=== PATIENT | female | born 1945 | race African-American/Black ===

== ENCOUNTER 2018-02-07 12:36 | Inpatient (IN) | payer MEDICARE, MEDICAID ==
[~2018-02-07] VITALS: Ht 160 cm; Wt 91.8 kg
[2018-02-07 14:58] LABS: BASOPHILS % 0.1 % (0.0-2.0); HEMATOCRIT. 34.3 % (36.0-48.0); HEMOGLOBIN. 11.1 g/dL (12.0-16.0); LYMPHOCYTES % 9.6 % (20.0-50.0); MEAN CORPUSCULAR HEMOGLOBIN 31.3 pg (28.0-32.0); MEAN CORPUSCULAR VOLUME 96.8 fL (81.0-99.0); MEAN PLATELET VOLUME 9.1 fl (7.4-10.4); MONOCYTES % 11.1 % (2.0-8.0); NEUTROPHILS % 79.2 % (40.0-76.0); PLATELET 225 x1000/uL (130-400); RED BLOOD CELL COUNT 3.54 mill/uL (4.2-5.4); RED CELL DISTRIBUTION WIDTH 13.7 % (11.6-14.6)
[2018-02-07 15:03] LABS: CHLORIDE 102 mEq/L (98-107)
[2018-02-07 15:10] LABS: INR 1.1; PROTHROMBIN TIME 10.9 sec (9.1-11.1)
[2018-02-07 15:23] LABS: CREATINE KINASE 215 IU/L (26-192)
[2018-02-07] MEDS ORDERED: HYDRALAZINE 20MG/ML VIAL IV ONE (16:30)
[2018-02-07 23:00] VITALS: BP 131/61
[2018-02-07] MEDS ORDERED: ATOR10TA69 PO (23:28)
[2018-02-07] MEDS ORDERED: ASPI-1159 PO (23:28)
[2018-02-07] MEDS ORDERED: FURO-151 PO (23:28)
[2018-02-07] MEDS ORDERED: METF-517 PO (23:28)
[2018-02-07] MEDS ORDERED: GLYB5TAB7 PO (23:28)
[2018-02-07] MEDS ORDERED: INFLUENZA VIRUS VACCINE(AFLURIA) 0.5ML SYR IM ONE (23:45)
[2018-02-08] VITALS: BP 103/37
[2018-02-08] MEDS ORDERED: DEXTROSE 50% WATER 50ML SYRINGE IV PRN (00:30)
[2018-02-08] MEDS ORDERED: ONDANSETRON HCL 4MG/2ML INJ IV PRN (00:30)
[2018-02-08] MEDS ORDERED: CLONIDINE 0.1MG TABLET PO PRN (00:30)
[2018-02-08] MEDS ORDERED: MAGNESIUM/ALUMINUM HYDROXIDE/SIMETHICONE 30ML UDC PO PRN (00:30)
[2018-02-08] MEDS: ACETAMINOPHEN 325MG TABLET PO PRN (00:36)
[2018-02-08] MEDS ORDERED: SODIUM BICARBONATE 100 MEQ in DEXTROSE 5% WATER 1,000 ML IV SCH (02:00)
[2018-02-08 04:00] VITALS: BP 112/33
[2018-02-08] MEDS: BLOOD SUGAR DIAGNOSTIC STRIP TEST SCH ×4 (06:47→21:05)
[2018-02-08 08:00] VITALS: BP 115/60
[2018-02-08] MEDS: INSULIN LISPRO 100 UNITS/ML SUBCUT SCH ×4 (09:38→21:05)
[2018-02-08] MEDS ORDERED: SODIUM BICARBONATE 4% (2.4MEQ) 5ML VIAL IV ONE (10:39)
[2018-02-08] MEDS ORDERED: LIDOCAINE HCL 1% 20ML VIAL (Pyxis) INJ ONE (10:40)
[2018-02-08] MEDS ORDERED: SODIUM BICARBONATE 150 MEQ in DEXTROSE 5% WATER 1,000 ML IV SCH (11:30)
[2018-02-08 12:00] VITALS: BP 116/61
[2018-02-08] MEDS ORDERED: MAGNESIUM 2 G PREMIX 50 ML IV SCH (12:00)
[2018-02-08] MEDS: CITRIC ACID/SODIUM CITRATE SOLN 30ML UDC PO SCH ×3 (13:00→18:27)
[2018-02-08 16:00] VITALS: BP 118/64
[2018-02-08 17:10] LABS: BG BASE EXCESS -9.9 mmol/L (-2.0-2.0); BG CARBOXYHEMOGLOBIN 0.3 % (0.5-1.5); BG DEOXYHEMOGLOBIN 2.6 % (0.0-5.0); BG FRACTION INSPIRED OXYGEN 21; BG HCO3 ACT 13.6 mmol/L (22.0-26.0); BG METHEMOGLOBIN 0.3 % (0.0-1.5); BG OXYGEN SATURATION 97.4 % (92.0-98.5); BG OXYHEMOGLOBIN 96.8 % (94.0-97.0); BG PCO2 23.3 mmHg (35.0-45.0); BG PH 7.384 (7.350-7.450); BG PO2 107.9 mmHg (75.0-100.0); BG SAMPLE SITE RIGHT RADIAL; BG TOTAL HEMOGLOBIN 10.3 g/dL (12.0-18.0); BG VENT MODE ROOM AIR
[2018-02-08 20:26] VITALS: BP 83/37
[2018-02-08] MEDS: FAMOTIDINE 20MG TABLET PO SCH (21:04)
[2018-02-08] MEDS: DEXT 5%/0.45% NACL 1000ML 1,000 ML IV SCH (21:55)
[2018-02-09 00:26] VITALS: BP 113/54
[2018-02-09 04:00] VITALS: BP 114/38
[2018-02-09 07:03] LABS: HEPATITIS B SURFACE AB < 3.1 mIU/mL
[2018-02-09 07:14] LABS: CLARITY URINE CLOUDY (CLEAR); COLOR URINE OTHER (YELLOW); KETONES URINE NEGATIVE (NEGATIVE); LEUKOCYTE ESTERASE URINE NEGATIVE (NEGATIVE); NITRITE URINE NEGATIVE (NEGATIVE); OCCULT BLOOD URINE NEGATIVE (NEGATIVE); PROTEIN URINE TRACE (NEGATIVE); SPECIFIC GRAVITY URINE 1.014 (1.005-1.030); UROBILINOGEN URINE 0.2 E.U./dL (0.2-1.0)
[2018-02-09 07:14] LABS: BASOPHILS % 0.3 % (0.0-2.0); EOSINOPHILS % 0.4 % (0.0-5.0); HEMATOCRIT. 26.1 % (36.0-48.0); HEMOGLOBIN. 9.1 g/dL (12.0-16.0); HEPATITIS B SURFACE ANTIGEN NEGATIVE; LYMPHOCYTES % 23.1 % (20.0-50.0); MEAN CORPUSCULAR HEMOGLOBIN 32.9 pg (28.0-32.0); MEAN CORPUSCULAR VOLUME 94.6 fL (81.0-99.0); MEAN PLATELET VOLUME 9.5 fl (7.4-10.4); MONOCYTES % 13.8 % (2.0-8.0); NEUTROPHILS % 62.4 % (40.0-76.0); PLATELET 166 x1000/uL (130-400); RED BLOOD CELL COUNT 2.76 mill/uL (4.2-5.4); RED CELL DISTRIBUTION WIDTH 13.4 % (11.6-14.6)
[2018-02-09] MEDS: BLOOD SUGAR DIAGNOSTIC STRIP TEST SCH ×4 (07:32→21:00)
[2018-02-09 08:00] VITALS: BP 119/56
[2018-02-09] MEDS: INSULIN LISPRO 100 UNITS/ML SUBCUT SCH ×4 (08:54→21:00)
[2018-02-09] MEDS: DEXT 5%/0.45% NACL 1000ML 1,000 ML IV SCH (08:55)
[2018-02-09] MEDS: CITRIC ACID/SODIUM CITRATE SOLN 30ML UDC PO SCH ×2 (08:55→12:35)
[2018-02-09 10:03] LABS: PHOSPHORUS 3.4 mg/dL (2.5-4.9)
[2018-02-09 12:00] VITALS: BP 101/56
[2018-02-09] MEDS: SODIUM CHLORIDE 0.9% 1,000 ML IV SCH (14:08)
[2018-02-09 16:00] VITALS: BP 93/42
[2018-02-09 20:27] VITALS: BP 116/54
[2018-02-09] MEDS ORDERED: EPOETIN ALFA 10000UNITS/ML VIAL SUBCUT SCH (21:00)
[2018-02-09] MEDS: FAMOTIDINE 20MG TABLET PO SCH (22:11)
[2018-02-09] MEDS: ACETAMINOPHEN 325MG TABLET PO PRN (22:12)
[2018-02-10 00:40] VITALS: BP 106/50
[2018-02-10 04:00] VITALS: BP 99/46
[2018-02-10] MEDS: SODIUM CHLORIDE 0.9% 1,000 ML IV SCH (04:40)
[2018-02-10 07:59] LABS: BASOPHILS % 0.4 % (0.0-2.0); EOSINOPHILS % 0.8 % (0.0-5.0); HEMATOCRIT. 25.9 % (36.0-48.0); HEMOGLOBIN. 8.8 g/dL (12.0-16.0); LYMPHOCYTES % 23.5 % (20.0-50.0); MEAN CORPUSCULAR HEMOGLOBIN 32.4 pg (28.0-32.0); MEAN PLATELET VOLUME 9.5 fl (7.4-10.4); MONOCYTES % 11.5 % (2.0-8.0); NEUTROPHILS % 63.8 % (40.0-76.0); PLATELET 152 x1000/uL (130-400); RED BLOOD CELL COUNT 2.73 mill/uL (4.2-5.4); RED CELL DISTRIBUTION WIDTH 13.5 % (11.6-14.6)
[2018-02-10 08:00] VITALS: BP 119/55
[2018-02-10] MEDS: BLOOD SUGAR DIAGNOSTIC STRIP TEST SCH ×4 (08:05→21:52)
[2018-02-10] MEDS: INSULIN LISPRO 100 UNITS/ML SUBCUT SCH ×4 (08:19→21:07)
[2018-02-10 08:46] LABS: PHOSPHORUS 2.3 mg/dL (2.5-4.9)
[2018-02-10 12:00] VITALS: BP 140/70
[2018-02-10 16:00] VITALS: BP 134/54
[2018-02-10 20:00] VITALS: BP 121/58
[2018-02-10] MEDS: FAMOTIDINE 20MG TABLET PO SCH (21:03)
[2018-02-11] VITALS: BP 118/52
[2018-02-11 04:00] VITALS: BP 122/59
[2018-02-11 07:00] LABS: BASOPHILS % 0.6 % (0.0-2.0); EOSINOPHILS % 1.2 % (0.0-5.0); HEMATOCRIT. 24.1 % (36.0-48.0); HEMOGLOBIN. 8.2 g/dL (12.0-16.0); LYMPHOCYTES % 25.1 % (20.0-50.0); MEAN CORPUSCULAR HEMOGLOBIN 32.5 pg (28.0-32.0); MEAN CORPUSCULAR VOLUME 95.2 fL (81.0-99.0); MEAN PLATELET VOLUME 9.2 fl (7.4-10.4); MONOCYTES % 11.9 % (2.0-8.0); NEUTROPHILS % 61.2 % (40.0-76.0); PLATELET 141 x1000/uL (130-400); RED BLOOD CELL COUNT 2.53 mill/uL (4.2-5.4); RED CELL DISTRIBUTION WIDTH 13.2 % (11.6-14.6)
[2018-02-11] MEDS: BLOOD SUGAR DIAGNOSTIC STRIP TEST SCH ×4 (07:20→21:32)
[2018-02-11 07:26] LABS: PHOSPHORUS 2.3 mg/dL (2.5-4.9)
[2018-02-11 08:00] VITALS: BP 141/77
[2018-02-11] MEDS: INSULIN LISPRO 100 UNITS/ML SUBCUT SCH ×4 (08:29→21:48)
[2018-02-11] MEDS ORDERED: MAGNESIUM 2 G PREMIX 50 ML IV NR (13:30)
[2018-02-11] MEDS ORDERED: POTASSIUM PHOS,M-BASIC-D-BASIC 15 MMOL in DEXT 5% WATER 245 ML IV NR (14:00)
[2018-02-11 20:02] VITALS: BP 135/62
[2018-02-11] MEDS ORDERED: EPOETIN ALFA 10000UNITS/ML VIAL SUBCUT SCH (21:00)
[2018-02-11] MEDS: FAMOTIDINE 20MG TABLET PO SCH (21:38)
[2018-02-12] VITALS: BP 132/60
[2018-02-12 04:00] VITALS: BP 130/77
[2018-02-12] MEDS: BLOOD SUGAR DIAGNOSTIC STRIP TEST SCH ×4 (06:53→21:00)
[2018-02-12 07:11] LABS: BASOPHILS % 0.5 % (0.0-2.0); EOSINOPHILS % 0.8 % (0.0-5.0); HEMATOCRIT. 23.9 % (36.0-48.0); HEMOGLOBIN. 8.2 g/dL (12.0-16.0); LYMPHOCYTES % 23.1 % (20.0-50.0); MEAN CORPUSCULAR HEMOGLOBIN 32.5 pg (28.0-32.0); MEAN CORPUSCULAR VOLUME 95.1 fL (81.0-99.0); MEAN PLATELET VOLUME 9.2 fl (7.4-10.4); NEUTROPHILS % 63.6 % (40.0-76.0); PLATELET 143 x1000/uL (130-400); RED BLOOD CELL COUNT 2.51 mill/uL (4.2-5.4); RED CELL DISTRIBUTION WIDTH 13.6 % (11.6-14.6)
[2018-02-12 07:52] LABS: PHOSPHORUS 2.4 mg/dL (2.5-4.9)
[2018-02-12 08:00] VITALS: BP 136/60
[2018-02-12] MEDS: INSULIN LISPRO 100 UNITS/ML SUBCUT SCH ×4 (08:07→21:51)
[2018-02-12] MEDS ORDERED: POTASSIUM CHLORIDE 20MEQ TABLET SR PO NR (10:30)
[2018-02-12 12:00] VITALS: BP 145/53
[2018-02-12 16:00] VITALS: BP 148/76
[2018-02-12] MEDS: GLIPIZIDE 5MG XL TABLET PO SCH (17:51)
[2018-02-12 19:58] VITALS: BP 121/82
[2018-02-12] MEDS: ATORVASTATIN CALCIUM 40MG TABLET PO SCH (21:48)
[2018-02-12] MEDS: METOPROLOL TARTRATE 25MG TABLET PO SCH (21:49)
[2018-02-12] MEDS: FAMOTIDINE 20MG TABLET PO SCH (21:49)
[2018-02-13] VITALS (15 sets, daily range): BP systolic 99–156; BP diastolic 42–85
[2018-02-13] MEDS: INSULIN LISPRO 100 UNITS/ML SUBCUT SCH ×4 (07:50→20:32)
[2018-02-13 08:02] LABS: PHOSPHORUS 2.7 mg/dL (2.5-4.9)
[2018-02-13 08:09] LABS: BASOPHILS % 0.4 % (0.0-2.0); EOSINOPHILS % 0.5 % (0.0-5.0); HEMATOCRIT. 25.1 % (36.0-48.0); HEMOGLOBIN. 8.5 g/dL (12.0-16.0); MEAN CORPUSCULAR HEMOGLOBIN 32.3 pg (28.0-32.0); MEAN CORPUSCULAR VOLUME 95.6 fL (81.0-99.0); MEAN PLATELET VOLUME 9.1 fl (7.4-10.4); MONOCYTES % 11.1 % (2.0-8.0); PLATELET 159 x1000/uL (130-400); RED BLOOD CELL COUNT 2.63 mill/uL (4.2-5.4); RED CELL DISTRIBUTION WIDTH 13.6 % (11.6-14.6)
[2018-02-13] MEDS ORDERED: LIDOCAINE HCL 1% 20ML VIAL (Pyxis) INJ ONE (08:58)
[2018-02-13] MEDS ORDERED: LIDOCAINE HCL/EPINEPHRINE 1%-EPI 1:100,000 20 ML VIAL ONE (08:59)
[2018-02-13] MEDS ORDERED: CEFAZOLIN 1000MG PREMIX 50 ML IV ONE ×2 (09:50→09:52)
[2018-02-13] MEDS ORDERED: FENTANYL CITRATE/PF 50MCG/ML 2ML VIAL ONE (09:52)
[2018-02-13] MEDS ORDERED: FENTANYL CITRATE/PF 50MCG/ML 2ML VIAL IV ONE (10:00)
[2018-02-13] MEDS: METOPROLOL TARTRATE 25MG TABLET PO SCH ×2 (10:55→20:29)
[2018-02-13] MEDS: GLIPIZIDE 5MG XL TABLET PO SCH ×2 (10:55→16:58)
[2018-02-13] MEDS: BLOOD SUGAR DIAGNOSTIC STRIP TEST SCH ×3 (12:34→20:29)
[2018-02-13] MEDS: ACETAMINOPHEN 325MG TABLET PO PRN ×2 (16:58→23:55)
[2018-02-13] MEDS: FAMOTIDINE 20MG TABLET PO SCH (20:29)
[2018-02-13] MEDS: ATORVASTATIN CALCIUM 40MG TABLET PO SCH (20:29)
[2018-02-14] VITALS: BP_SYST 133; BP_SYST 141; BP_DIAS 50; BP_DIAS 68
[2018-02-14 04:00] VITALS: BP 130/77
[2018-02-14] MEDS: BLOOD SUGAR DIAGNOSTIC STRIP TEST SCH (06:55)
[2018-02-14] MEDS ORDERED: METO25TA6 PO (07:26)
[2018-02-14] MEDS ORDERED: EPOE10005 SUBCUT (07:26)
[2018-02-14] MEDS ORDERED: GLIPIZIDE 5MG XL TABLET PO SCH (07:50)
[2018-02-14 08:00] VITALS: BP 153/61
[2018-02-14] MEDS: ACETAMINOPHEN 325MG TABLET PO PRN (08:23)
[2018-02-14] MEDS: METOPROLOL TARTRATE 25MG TABLET PO SCH (08:47)
[2018-02-14] MEDS: INSULIN LISPRO 100 UNITS/ML SUBCUT SCH (08:49)
[2018-02-14 10:32] VITALS: BP 128/75
== END 2018-02-14 11:05 | disposition home health service (06) | DRG 673 ==
LOC: ER 12:36 → 6WST 16:58 → EDBEDREQ 17:00 → EDBEDREQTM 17:00 → ENRESERV 19:36
PROVIDERS: ADMIT Internal Medicine; ATTEND Internal Medicine
PROC: 02HV33Z Insertion of Infusion Device into Superior Vena Cava, Percutaneous Approach (ICD-10-PCS; principal; 2018-02-08)
PROC: B5181ZA Fluoroscopy of Superior Vena Cava using Low Osmolar Contrast, Guidance (ICD-10-PCS; 2018-02-08)
PROC: B548ZZA Ultrasonography of Superior Vena Cava, Guidance (ICD-10-PCS; 2018-02-08)
PROC: 5A1D70Z Performance of Urinary Filtration, Intermittent, Less than 6 Hours Per Day (ICD-10-PCS; 2018-02-08)
PROC: 5A1D70Z Performance of Urinary Filtration, Intermittent, Less than 6 Hours Per Day (ICD-10-PCS; 2018-02-10)
PROC: 0JH63XZ Insertion of Tunneled Vascular Access Device into Chest Subcutaneous Tissue and Fascia, Percutaneous Approach (ICD-10-PCS; 2018-02-13)
PROC: B548ZZA Ultrasonography of Superior Vena Cava, Guidance (ICD-10-PCS; 2018-02-13)
PROC: 02HV33Z Insertion of Infusion Device into Superior Vena Cava, Percutaneous Approach (ICD-10-PCS; 2018-02-13)
PROC: B5181ZA Fluoroscopy of Superior Vena Cava using Low Osmolar Contrast, Guidance (ICD-10-PCS; 2018-02-13)
PROC: 05PY33Z Removal of Infusion Device from Upper Vein, Percutaneous Approach (ICD-10-PCS; 2018-02-13)
DX: N17.9 Acute kidney failure, unspecified (principal); G93.41 Metabolic encephalopathy; E87.2 Acidosis; E87.1 Hypo-osmolality and hyponatremia; I13.2 Hypertensive heart and chronic kidney disease with heart failure and with stage 5 chronic kidney disease, or end stage renal disease; I50.42 Chronic combined systolic (congestive) and diastolic (congestive) heart failure; M62.82 Rhabdomyolysis; E11.649 Type 2 diabetes mellitus with hypoglycemia without coma; N18.6 End stage renal disease; I25.10 Atherosclerotic heart disease of native coronary artery without angina pectoris; K80.20 Calculus of gallbladder without cholecystitis without obstruction; E87.5 Hyperkalemia; E11.22 Type 2 diabetes mellitus with diabetic chronic kidney disease; D64.9 Anemia, unspecified; D72.829 Elevated white blood cell count, unspecified; R00.0 Tachycardia, unspecified; I44.1 Atrioventricular block, second degree; I25.2 Old myocardial infarction; Z82.49 Family history of ischemic heart disease and other diseases of the circulatory system; Z95.0 Presence of cardiac pacemaker; Z83.3 Family history of diabetes mellitus; Z95.1 Presence of aortocoronary bypass graft; Z95.810 Presence of automatic (implantable) cardiac defibrillator; Z99.2 Dependence on renal dialysis; Z87.81 Personal history of (healed) traumatic fracture
CPT/HCPCS: 36415; 36556; 36558; 36589; 36600; 71045; 74176; 76937; 77001; 80048; 82375; 82550; 82805; 82962; 83605; 83735; 83880; 84100; 84443; 84484; 86705; 86706; 86803; 87340; 90686; 93005; 93306; 93970; 96374; 97116; 97162; 97166; 97530; 97535; 99152; 99153; 99285; C1750; C1752; C1769; J0690; J0885; J1642; J1815; J2405; J3010; J3475; J3490; J7030; J7050; J7060; J7070; G0500

== ENCOUNTER 2021-05-12 10:52 | Emergency (ER) | payer OTHER, MEDICAID ==
[~2021-05-12] VITALS: Ht 165.1 cm; Wt 91.0 kg
[~2021-05-12 10:52] MED LIST: ATOR10TA69 PO; EPOE10005 SUBCUT; GLYB5TAB7 PO; METO25TA6 PO
[2021-05-12 11:52] LABS: HEMOGLOBIN. 11.3 g/dL (12.0-16.0); MEAN CORPUSCULAR HEMOGLOBIN 30.2 pg (28.0-32.0); RED BLOOD CELL COUNT 3.73 mill/uL (4.2-5.4); RED CELL DISTRIBUTION WIDTH 13.7 % (11.6-14.6)
[2021-05-12 11:56] LABS: CHLORIDE 105 mEq/L (98-107)
[2021-05-12 12:32] LABS: PLATELET 206 x1000/uL (130-400)
[2021-05-12 12:35] LABS: PLATELET ESTIMATE NORMAL
[2021-05-12] MEDS ORDERED: SODIUM BICARBONATE 8.4% 1 MEQ/ML 50ML SYR IV NR (14:15)
[2021-05-12] MEDS ORDERED: DEXT 5%/0.9% NACL 1,000 ML IV SCH (15:30)
[2021-05-12] MEDS ORDERED: DEXTROSE 50% WATER 50ML SYRINGE IV PRN (15:30)
[2021-05-12] MEDS ORDERED: BLOOD SUGAR DIAGNOSTIC STRIP TEST SCH (15:30)
[2021-05-12] MEDS ORDERED: ACETAMINOPHEN 325MG TABLET PO ONE (20:00)
[2021-05-12 21:36] VITALS: BP 161/54
== END 2021-05-12 22:56 | disposition short-term general hospital (02) ==
LOC: ER 11:00 → SUPCPDRO 14:47 → CANBEDREQ 20:45 → ER 22:56
DX: E11.65 Type 2 diabetes mellitus with hyperglycemia (principal); I25.2 Old myocardial infarction; I10 Essential (primary) hypertension; Z20.822 Contact with and (suspected) exposure to COVID-19; Z98.890 Other specified postprocedural states; Z91.15 Patient's noncompliance with renal dialysis
CPT/HCPCS: 36415; 70450; 71045; 80053; 82962; 85025; 96361; 96374; 99285; C9803; J3490; U0003; U0005; 87426